=== PATIENT | male | born 1970 | race Caucasian/White ===

== ENCOUNTER 2017-08-18 03:30 | Emergency (ER) | payer SELFPAY ==
[~2017-08-18] VITALS: Ht 162.6 cm; Wt 77.0 kg
[2017-08-18] MEDS ORDERED: SULFAMETH./TRIMETHOPRIM DS 800MG/160MG TABLET ONE (04:46)
[2017-08-18] MEDS ORDERED: LIDOCAINE 1%, 20ML ONE (04:46)
[2017-08-18] MEDS ORDERED: CEFTRIAXONE PMX 1GM/50ML 50 ML ONE (04:46)
[2017-08-18] MEDS ORDERED: SULFAMETH./TRIMETHOPRIM DS 800MG/160MG TABLET PO ONE (05:00)
[2017-08-18] MEDS ORDERED: CEFTRIAXONE PMX 1GM/50ML 50 ML IVPB ONE (05:00)
[2017-08-18] MEDS ORDERED: LIDOCAINE 1%, 20ML SQ ONE (05:00)
[2017-08-18 05:54] VITALS: BP 157/82
== END 2017-08-18 05:57 | disposition home or self-care (01) ==
LOC: ED 05:30
DX: L03.113 Cellulitis of right upper limb (principal); F17.200 Nicotine dependence, unspecified, uncomplicated
CPT/HCPCS: 10060; 96365; 99284; J0696